=== PATIENT | female | born 1955 | race Caucasian/White ===

== ENCOUNTER 2019-04-21 08:56 | Emergency (ER) | payer MEDICARE, MEDICAID ==
[~2019-04-21] VITALS: Ht 144.8 cm; Wt 82.1 kg
[2019-04-21 09:01] VITALS: BP 132/61
[2019-04-21] MEDS ORDERED: IBUPROFEN 600 MG TAB PO ONE (09:40)
[2019-04-21 11:01] VITALS: BP 117/69
== END 2019-04-21 11:00 | disposition home or self-care (01) ==
LOC: MED 08:56
DX: S89.92XA Unspecified injury of left lower leg, initial encounter (principal); E11.9 Type 2 diabetes mellitus without complications; I10 Essential (primary) hypertension; Z90.49 Acquired absence of other specified parts of digestive tract; Z98.890 Other specified postprocedural states; W18.30XA Fall on same level, unspecified, initial encounter; Y93.89 Activity, other specified; Y92.89 Other specified places as the place of occurrence of the external cause; Y99.8 Other external cause status
CPT/HCPCS: 73562; 99283

== ENCOUNTER 2021-03-09 15:45 | Emergency (ER) | payer OTHER, MEDICAID ==
[~2021-03-09] VITALS: Ht 157.5 cm; Wt 83.6 kg
[2021-03-09 16:40] VITALS: BP 95/61
--- NOTE | 2021-03-09 17:30 | NUR ---
65 Y/O FEMALE C/O RIGHT UPPER ARM PAIN S/P FALL X YESTERDAY. PT STATES 04/27 SHARP. LIMITED MOVEMENT WITH RT ARM. SKIN WARM AND DRY. DAUGHTER AT BEDSIDE. PMH: DM, HTN, COLOSTOMY BAG NKA
[2021-03-09] MEDS ORDERED: HYDROcodone/APAP 7.5/325 MG 1 TAB PO ONE (17:35)
[2021-03-09] MEDS ORDERED: KETOROLAC 30 MG/ML VIAL IM ONE (17:35)
[2021-03-09] MEDS ORDERED: BACITRACIN OINT 500 UNITS/GM PKT TP ONE (17:40)
--- NOTE | 2021-03-09 17:40 | NUR ---
BACITRACIN OINTMENT APPLIED TO BILAT KNEE ABRASION, BANDAIDS PLACED.
[2021-03-09] MEDS ORDERED: ACET-8386 PO (18:06)
[2021-03-09] MEDS ORDERED: IBUP-2213 PO (18:06)
[2021-03-09] MEDS ORDERED: BACI1PAC6 TP (18:08)
--- NOTE | 2021-03-09 18:25 | NUR ---
Note alessandro in EDM - 03/09/21 at 1828 by [facility] Patient discharged with v/s stable. Written and verbal after care instructions given and explained. Patient alert, oriented and verbalized understanding of instructions. Ambulatory with steady gait. All questions addressed prior to discharge. ID band removed. Patient advised to follow up with PMD. Rx of HYDROCODONE/ACETAMINOPHEN,BACITRACIN OINT, AND IBUPROFEN given. Patient educated on indication of medication including possible reaction and side effects. Opportunity to ask questions provided and answered.
== END 2021-03-09 18:25 | disposition home or self-care (01) ==
LOC: MED 15:45
DX: S42.201A Unspecified fracture of upper end of right humerus, initial encounter for closed fracture (principal); E11.9 Type 2 diabetes mellitus without complications; I10 Essential (primary) hypertension; Z79.899 Other long term (current) drug therapy; W01.0XXA Fall on same level from slipping, tripping and stumbling without subsequent striking against object, initial encounter; Y93.89 Activity, other specified; Y92.89 Other specified places as the place of occurrence of the external cause; Y99.8 Other external cause status
CPT/HCPCS: 73060; 99284; Q0163; J1885

== ENCOUNTER 2021-07-17 16:03 | Emergency (ER) | payer OTHER, MEDICAID ==
[~2021-07-17] VITALS: Ht 144.8 cm; Wt 81.8 kg
[~2021-07-17 16:03] MED LIST: ACET-8386 PO; BACI1PAC6 TP; IBUP-2213 PO
[2021-07-17 16:04] VITALS: BP 154/44
--- NOTE | 2021-07-17 16:17 | NUR ---
PT AMB TO BED 4.
--- NOTE | 2021-07-17 16:30 | NUR ---
pt c/o bleeding around colostomy this am, normal output denies pain no other complaints.
[2021-07-17] MEDS ORDERED: [UNRECOGNIZED DRUG - CODE] TP (16:39)
--- NOTE | 2021-07-17 16:46 | NUR ---
pt verbalizes dc instructions. no acute distress noted. stable on dc.
== END 2021-07-17 16:47 | disposition home or self-care (01) ==
LOC: MED 16:03
DX: K91.840 Postprocedural hemorrhage of a digestive system organ or structure following a digestive system procedure (principal); E11.9 Type 2 diabetes mellitus without complications; I10 Essential (primary) hypertension; Z79.899 Other long term (current) drug therapy; Z90.49 Acquired absence of other specified parts of digestive tract
CPT/HCPCS: 99281